=== PATIENT | female | born 1980 | race Caucasian/White ===

== ENCOUNTER 2023-10-27 15:48 | Outpatient (CLI) | payer BC, SELFPAY ==
--- NOTE | 2023-10-27 16:00 | US_ITS ---
Final Report Patient: ALISSON CHI Facility:?[facility] Patient ID:?[id number] Site Patient ID:?[id number] Site :?[id number] Study:? Pelvis -10/27/2023 4:36:25 PM Ordering Physician:?HALEY CHIU Final Report: CLINICAL HISTORY: Left lower quadrant pain TECHNIQUE: 2D godinez scale ultrasound. In addition color Doppler and spectral Doppler analysis was performed of the pelvis using a transvaginal approach. FINDINGS: The uterus measures 8.0 x 4.3 x 4.4 cm. No uterine fibroid. The endometrial lining appears normal and measures 8 mm in thickness. The right ovary measures 3.6 x 2.3 x 2.2 cm in size and the right ovary measures 2.6 x 1.8 x 1.4 cm. The ovaries demonstrate normal arterial and venous blood flow on color Doppler and spectral Doppler analysis. Hypoechoic cyst within the left ovary is present measuring 1.4 x 1.4 x 1.4 cm. There is a simple right para ovarian cyst measuring 2.7 x 1.5 x 1.5 cm. Hypoechoic cyst within the right ovary measuring 1.6 x 1.7 x 1.7 cm. Additional complex cyst right ovary measuring 1.7 cm. There are no suspicious fluid collections within the cul-de-sac. IMPRESSION: There are 2 complex right ovarian cysts present measuring 1.7 cm each, most compatible with hemorrhagic cysts. Additional paraovarian cyst is present on the right measuring 2.7 cm. There is no ovarian torsion or excess pelvic free fluid. Follow-up ultrasound in 8-12 weeks may be useful for further evaluation. There is no left adnexal mass. An incidental hemorrhagic left ovarian cyst is present measuring 1.4 cm. Dictated by Bar Nelson MD @ 10/28/2023 1:36:18 PM (Electronic Signature)
== END 2023-10-27 15:49 | disposition home or self-care (01) ==
LOC: US 15:48
PROVIDERS: PCP Student in an Organized Health Care Education/Training Program; Visit Provider Obstetrics & Gynecology
DX: R10.32 Left lower quadrant pain (principal); N83.201 Unspecified ovarian cyst, right side; N83.202 Unspecified ovarian cyst, left side; Z87.42 Personal history of other diseases of the female genital tract
CPT/HCPCS: 76830; 76856; 93976

== ENCOUNTER 2025-03-25 13:27 | Outpatient (CLI) | payer BC, SELFPAY | END 2025-03-25 13:28 | disposition home or self-care (01) | PROVIDERS: Visit Provider Family Medicine | DX: S89.91XA Unspecified injury of right lower leg, initial encounter (principal); S89.92XA Unspecified injury of left lower leg, initial encounter; X58.XXXA Exposure to other specified factors, initial encounter; Y92.9 Unspecified place or not applicable | CPT/HCPCS: A0998 ==